=== PATIENT | female | born 1995 | race Caucasian/White ===

== ENCOUNTER 2023-07-24 07:39 | Emergency (ER) | payer BC ==
[2023-07-24 08:24] LABS: #Eosinphils 0.1 10x3/uL (0.0-0.5); #Monocytes 0.5 10x3/uL (0.0-1.1); #Neutrophils 6.2 10x3/uL (1.5-8.4); %Basophils 0.2 % (0.0-2.0); %Eosinophils 0.7 % (0.0-6.0); %Lymphocytes 25.8 % (18.0-47.0); %Monocytes 5.4 % (0.0-10.0); %Neutrophils 67.6 % (40.0-75.0); Hematocrit 38.2 % (34.9-44.5); Hemoglobin 12.9 g/dL (12.0-15.5); Mean Corpuscular HGB CONC 33.8 g/dL (32.0-36.0); Mean Corpuscular Hemoglobin 31.4 pg (27.0-33.0); Mean Corpuscular Volume 92.9 fl (81.6-98.3); Mean Platelet Volume 10.5 fl (7.4-10.4); Platelet Count 236 10x3/uL (150-450); RBC Distribution Width 12.2 % (11.5-14.5); Red Blood Cell (RBC) Count 4.11 10x6/uL (3.90-5.03); White Blood Cell (WBC) Count 9.2 10x3/uL (3.5-10.5)
[2023-07-24 08:51] LABS: ALT (SGPT) 15 U/L (8-55); AST (SGOT) 13 U/L (5-34); Albumin 4.3 g/dL (3.5-5.0); Alkaline Phosphatase 38 U/L (40-110); Anion Gap 12 mmol/L (10-20); BUN (Urea Nitrogen) 10 mg/dL (7.0-18.7); Bilirubin, Total 0.5 mg/dL (0.2-1.2); Calc. Creatinine Clearance 0 mL/min (70-130); Calcium 9.1 mg/dL (7.8-10.44); Carbon Dioxide 23 mmol/L (22-29); Chloride 108 mmol/L (98-107); Estimated GFR 112; Globulin 2.2 g/dL (2.4-3.5); Glucose 106 mg/dL (70-105); Protein, Total 6.5 g/dL (6.0-8.3); Sodium 139 mmol/L (136-145)
== END 2023-07-24 09:56 | disposition home or self-care (01) ==
LOC: CSHERS 07:39
DX: O03.9 Complete or unspecified spontaneous abortion without complication (principal); F17.210 Nicotine dependence, cigarettes, uncomplicated
CPT/HCPCS: 36415; 76815; 80053; 84702; 85025; 86850; 86900; 86901

== ENCOUNTER 2024-06-20 03:30 | Inpatient (IN) | payer BC ==
[2024-06-20 03:51] VITALS: BMI 36.1
[2024-06-20] MEDS ORDERED: fentaNYL 50 mcg/mL 1 mL Vial SLOW IVP PRN (06:42)
[2024-06-20] MEDS ORDERED: Tranexamic Acid 1,000 MG/10 ML VIAL IVP PRN (06:43)
[2024-06-20] MEDS ORDERED: Methylergonovine 0.2 MG/ML VIAL IM PRN (06:45)
[2024-06-20] MEDS ORDERED: Ondansetron PF 4 MG/2 ML Vial IVP PRN ×3 (06:45→17:25)
[2024-06-20] MEDS ORDERED: Lidocaine 1% (PF) 30 ML VIAL SC PRN (06:45)
[2024-06-20] MEDS ORDERED: Diphenoxylate HCl/Atropine Tablet PO PRN ×2 (06:45)
[2024-06-20] MEDS ORDERED: Ibuprofen 800 MG TAB PO PRN (06:45)
[2024-06-20] MEDS ORDERED: Oxytocin 30 units/NS 500 ML 500 ML IV SCH (06:45)
[2024-06-20] MEDS ORDERED: Lactated Ringer's 1,000 ML IV SCH ×2 (06:45)
[2024-06-20] MEDS ORDERED: Promethazine HCl 25 MG/ML VIAL IM PRN ×2 (06:45→07:31)
[2024-06-20] MEDS ORDERED: HYDROcodone/Acetaminophen 5/325 mg Tablet PO PRN ×3 (06:45→17:25)
[2024-06-20] MEDS ORDERED: hydrALAZINE 20 MG/ML VIAL SLOW IVP PRN ×2 (06:45→17:25)
[2024-06-20] MEDS ORDERED: Carboprost 250 MCG/ML AMP IM PRN (06:45)
[2024-06-20] MEDS ORDERED: Acetaminophen 500 MG TAB PO PRN (06:45)
[2024-06-20 07:01] LABS: Hematocrit 41.3 % (34.9-44.5); Hemoglobin 14.1 g/dL (12.0-15.5); Mean Corpuscular HGB CONC 34.1 g/dL (32.0-36.0); Mean Corpuscular Hemoglobin 31.6 pg (27.0-33.0); Mean Corpuscular Volume 92.6 fL (81.6-98.3); Mean Platelet Volume 11.2 fL (7.4-10.4); Platelet Count 235 10x3/uL (150-450); RBC Distribution Width 12.5 % (11.5-14.5); Red Blood Cell (RBC) Count 4.46 10x6/uL (3.90-5.03); White Blood Cell (WBC) Count 20.2 10x3/uL (3.5-10.5)
[2024-06-20] MEDS: fentaNYL/Ropivacaine Epidural 100 ML ONE (07:22)
[2024-06-20] MEDS ORDERED: Naloxone HCl 0.4 mg/ml Vial IVP PRN ×2 (07:31)
[2024-06-20] MEDS ORDERED: ePHEDrine Sulfate 50 MG/10 ML VIAL SLOW IVP PRN (07:31)
[2024-06-20] MEDS ORDERED: Moisturizing Cream (Eucerin) 113 GM JAR TOP PRN (07:31)
[2024-06-20] MEDS ORDERED: Acetaminophen 325 MG TAB PO PRN (07:31)
[2024-06-20] MEDS ORDERED: Lactated Ringer's 500 ML IV PRN (07:31)
[2024-06-20] MEDS ORDERED: diphenhydrAMINE 50 MG/ML VIAL IVP PRN (07:31)
[2024-06-20 07:36] LABS: Syphilis Antibody Nonreactive (Nonreactive); Syphilis Antibody Index 0.08 S/CO (<1.00 Non-Reactive)
[2024-06-20 07:38] LABS: HBsAg Index 0.18 S/CO (0-0.99); Hep B Surf Ag - L&D Non-Reactive S/CO (NonReactive)
[2024-06-20] MEDS ORDERED: fentaNYL 2 mcg/Ropivacaine 0.2% Epidural 100 ML CADD EPIDURAL SCH (07:45)
[2024-06-20] MEDS ORDERED: Communication Order-Pharmacy FS SCH (07:45)
[2024-06-20] MEDS ORDERED: Bupivacaine 0.25% HCL 30 ML VIAL ONE (08:00)
[2024-06-20] MEDS: Misoprostol 200 MCG TAB RC PRN (14:05)
[2024-06-20] MEDS: Oxytocin 30 units/NS 500 ML 500 ML IVPB SCH (14:06)
[2024-06-20] MEDS ORDERED: Bisacodyl 10 MG SUPP PR PRN (17:25)
[2024-06-20] MEDS ORDERED: Preparation H Ointment 28 GM TUBE PR PRN (17:25)
[2024-06-20] MEDS ORDERED: diphenhydrAMINE 25 MG CAP PO PRN (17:25)
[2024-06-20] MEDS ORDERED: Lanolin Ointment 7 GM TUBE TOP PRN (17:25)
[2024-06-20] MEDS ORDERED: Milk Of Magnesia 30 ML UDCUP PO PRN (17:25)
[2024-06-20] MEDS: Boostrix 0.5 ML (Tdap) VIAL (>/=7 yrs of age) IM ONE (18:15)
[2024-06-20] MEDS: Ferrous Sulfate 325 MG TAB PO SCH (18:16)
[2024-06-20] MEDS: HYDROcodone/Acetaminophen 5/325 mg Tablet PO PRN (19:59)
[2024-06-20] MEDS: Ibuprofen 800 MG TAB PO SCH (19:59)
[2024-06-20] MEDS: Docusate 100 MG CAP PO SCH (19:59)
[2024-06-20] MEDS: Benzocaine-Menthol 82.5 ML CAN TOP PRN (19:59)
[2024-06-21] MEDS: Ferrous Sulfate 325 MG TAB PO SCH (07:34)
[2024-06-21] MEDS: Prenatal Vitamin 1 TAB PO SCH (08:17)
[2024-06-22 07:44] VITALS: BP 118/77; TEMP 97.8
== END 2024-06-22 14:10 | disposition home or self-care (01) | DRG 807 ==
LOC: CSHLD/OP 03:30 → CSHLD 06:05 → CSHPP 16:43
PROVIDERS: ADMIT Student in an Organized Health Care Education/Training Program; ATTEND Student in an Organized Health Care Education/Training Program
PROC: 10E0XZZ Delivery of Products of Conception, External Approach (ICD-10-PCS; principal; 2024-06-20)
PROC: 0KQM0ZZ Repair Perineum Muscle, Open Approach (ICD-10-PCS; 2024-06-20)
PROC: 0UQMXZZ Repair Vulva, External Approach (ICD-10-PCS; 2024-06-20)
DX: O70.1 Second degree perineal laceration during delivery (principal); Z37.0 Single live birth; O71.82 Other specified trauma to perineum and vulva; Z3A.39 39 weeks gestation of pregnancy; Z98.890 Other specified postprocedural states
CPT/HCPCS: 51702; 85027; 86780; 86850; 86900; 86901; 87340; 99285; J0665; J2590